=== PATIENT | female | born 1985 | race Caucasian/White ===

== ENCOUNTER 2017-12-13 10:11 | Inpatient (IN) ==
[2017-12-13] MEDS ORDERED: ACETAMINOPHEN 500 MG TABLET PO PRN (10:38)
[2017-12-13] MEDS ORDERED: CALCIUM CARBONATE Chewable 500mg TABLET PO PRN (10:38)
[2017-12-13] MEDS ORDERED: METHYLERGONOVINE 0.2 MG/ML INJECTION IM PRN (10:38)
[2017-12-13] MEDS ORDERED: CARBOPROST 250 MCG/ML INJECTION IM PRN (10:38)
[2017-12-13] MEDS ORDERED: MAG-AL + SIM ORAL LIQUID 30ml PO PRN (10:38)
[2017-12-13] MEDS ORDERED: LIDOCAINE 1% (10mg/ml) 2mL INJ PF SDV ID PRN (10:38)
--- OUTSIDE RECORDS SUMMARY | 2017-12-13 10:39 | External Medical Summary | Continuity of Care Document ---
:1985 Author Organization [facility] Address [address] [place], [place] [phone] Phone Care Team Providers Name Role Phone Elvira Brand MD Unavailable Unavailable Allergies, Adverse Reactions, Alerts Substance Reaction Severity Status latex rash Unknown Active cefixime rash Unknown Active Medications Medication Instructions Dosage Effective Dates Status Comments (start - stop) Pepcid 40 mg take 1 tablet by 40 MG - Active tablet oral route every day at bedtime Fioricet 50 mg-300 take 1 capsule by - Active mg-40 mg capsule oral route every 4 hours as needed 28 mg take 1 tablet by Not Available - Active iron-800 mcg oral route every tablet day Problems Condition Effective Dates (start - stop) Clinical Status Encounter for suprvsn of normal - , second trimester 20 weeks gestation of - Obesity complicating , second - trimester Encounter for suprvsn of normal - , second trimester 24 weeks gestation of - Encounter for suprvsn of normal - , third trimester 28 weeks gestation of - Morbid (severe) obesity due to excess calories Nonscarring hair loss, unspecified Menometrorrhagia Body mass index (BMI) 40.0-44.9, adult Abnormal glucose complicating - Encounter for suprvsn of normal - , second trimester 22 weeks gestation of - Encounter for suprvsn of normal - , third trimester 30 weeks gestation of - History Tobacco Abuse - Active Abdominal Pain, LLQ - Active Body Mass Index 40.0-44.9, Adult - Active Procedures Procedure Date Unknown Results Test Name Date and Time Measure Units Reference Range Abnormal Flag Comments Unknown Advance Directives Directive Yes / No Effective Date File Name Unknown Encounters Encounter Practice Location Reason(s) Diagnoses Date Provider Care Description For Visit Team Members Collette Cole Encounter for suprvsn October-0 Gene In Womens of normal , 4-201 [place]. [facility], third [email or web address] 8 Medical PO Box weeks gestation of Center [address], [place], [place], [place], [place], , [place], [place] [id number] tel:+ , [place]. tel: [phone] Collette Cole Apr-2 Gene In Womens 4-201 [place]. [facility], 8 Medical PO Box [place] [address], [place], 120, [place], [place], , [place], [place] [id number] tel:+ , [place]. tel:[phone] Colltete Swann Abnormal glucose Apr-2 Gene In Womens complicating 3-201 [place]. [facility] [place], 8 Medical PO Box [address], [place], 120, [place], [place], , [place] [id number] tel:+ , [place]. tel:[phone] Collette Cole Encounter for suprvsn Apr-1 Gene In Womens of normal , 8-201 [place]. [facility] [place], third 8 Medical PO Box weeks gestation of Center [address], [place], 120, [place], [place], , [place] [id number] tel:+ , [place]. tel:[phone] Collette Cole Obesity complicating Mar-2 Gene In Womens , second - [place]. [facility] [place], trimesterEncounter 8 Medical PO Box for suprvsn of normal Center [address], , second [place], weeks 120, [place], gestation of [place], , [place], tel: , [place]. tel: [phone] Collette Cole Encounter for suprvsn Mar-1 Sobbing In Womens of normal , 2-201 [place]. [facility], second [email or web address] 8 700 PO Box weeks gestation of Medical 1522, [facility], [place], [address] , 120, [place], tel: [place], 114, [place]. tel: [phone] Collette Cole Encounter for suprvsn Feb-2 Gene In Womens of normal , 1-201 [place]. 700 Health [place], second 8 Medical PO Box weeks gestation of [place] [address], Richy [place], [facility], [place], [place], , [place], [place] tel: , [place]. tel: [phone] Collette Cole Morbid (severe) Oct-0 [place] In Womens obesity due to excess 2-201 [place]. [facility], caloriesNonscarring 5 700 PO Box hair loss, Medical 1522, [facility] [place], agiaBody mass index Richy [place], (BMI) 40.0-44.9, 120, , adult Cole, [place], tel:[phone] , [place]. tel: [phone] Collette Cole Feb-2 Gene In Womens 4-201 [place]. 700 Health [place], 5 Medical PO Box [place] [address], Rich[place], [facility], [place], [place], , [place], [place] tel: , [place]. tel: [phone] Family History Family Member Diagnosis Age At Onset Paternal Grandfather Hypertension Father Renal disease Maternal Grandfather Diabetes mellitus Father Hypertension Paternal Grandfather Stroke Maternal Grandmother Hypertension Maternal Grandmother Osteoporosis Maternal Grandmother Renal disease No family history of Ovarian Cancer Paternal Grandfather Diabetes mellitus Close relative Cancer, breast Maternal Grandmother Thyroid Disorder Father Diabetes mellitus Sister Thyroid Disorder No family history of Colon Cancer Mother Thyroid Disorder Sister Renal disease Maternal Grandfather Stroke Immunizations Vaccine Date Status Comments Influenza, injectable, quadrivalent, completed Source: Other Provider preservative free, 3 yrs or older Payers Payer name Insurance type Covered green party ID Authorization(s) [facility] [id number] Social History Type Description Quantity Date Captured Unknown Vital Signs Date / Height Weight BMI Pulse Blood Temperature Respiratory Body Head BMI Time: Rate Pressure Rate Surface Circumference percentile Area Unknown Chief Complaint And Reason For Visit Unknown Chief Complaint And Reason For Visit Reason For Referral Reason For Referral Unknown Plan Of Care Date Type Action Status Appointment Delores Olson BOOKED Date Type Problem Goal Intervention Status Start Date Unknown. History Of Present Illness Encounter Date Complaint History Of Present Illness This patient has no known history of present illness Functional Status Encounter Date Functional Assessment Cognitive Assessment Unknown Medications Administered Medication Instructions Dosage Effective Dates (start - stop) Status Comments Drug Treatment Unknown Instructions Date Instruction Additional Information Unknown
--- OUTSIDE RECORDS SUMMARY | 2017-12-13 10:39 | External Medical Summary | Continuity of Care Document ---
:1985 Author Organization [facility] Address [address] [place], [place] [phone] Phone Care Team Providers Name Role Phone [...] third trimester 28 weeks gestation of - Encounter for suprvsn of normal - , second trimester 20 weeks gestation of - Obesity complicating , second - trimester Encounter for suprvsn of normal - , second trimester 24 weeks gestation of - Morbid (severe) obesity [...] 40.0-44.9, Adult - Active Procedures Procedure Date OB Visit No Charge Automated hemogram (CBC) Glucose test Venpnctr fngr/heel/ear stick routne Results Test Name Date and Time Measure Units Reference Range Abnormal Flag Comments Unknown NOTE: This patient has pending results not included in this document. Advance Directives Directive Yes / No Effective Date File Name Unknown Encounters Encounter Practice Location Reason(s) Diagnoses Date Provider Care Description For Visit Team Members Collette Cole Encounter for suprvsn May-0 Gene In Womens of normal , 4-201 [place]. 700 [facility] [place], third 8 Medical PO Box weeks gestation of [place] [address], Richy Sherwood, [facility], [place], [place], , [place], [place] tel:+ , [place]. tel:[phone] Collette [facility] Abnormal glucose Apr-2 Gene In Womens complicating 3-201 [place]. 700 [facility], 8 Medical PO Box [place] [address], Rich[place], 120, [place], [place], , [place], [place] [id number] tel:+ , [place]. tel: [phone] Collette Cole Encounter for suprvsn Apr-1 Gene In Womens of normal , 8-201 [place]. 700 [facility] [place], third [email or web address] 8 Medical PO Box weeks gestation of Center [address], Richy [place], 120, [place], [place], [id number], [place], [place] [id number] tel:+ , [place]. tel:[phone] Collette Cole Obesity complicating Mar-2 Gene In Womens , second 1-201 [place]. 700 [facility] [place], trimesterEncounter 8 Medical PO Box for suprvsn of normal Center [address], , second Richy Sherwood, [email or web address] weeks 120, [place], gestation of [place], , [place], [place] [id number] tel: , [place]. tel: [phone] Collette Cole Encounter for suprvsn Mar-1 Sobbing In Womens of normal , 2-201 [place]. [facility], second [email or web address] 8 700 PO Box weeks gestation of Medical 1522, [facility], [facility], [place], [address] [id number], 120, [place], tel: [place], [address], [place]. tel: [phone] Collette Cole Encounter for suprvsn Feb-2 Gene In Womens of normal , 1-201 [place]. 700 [facility] [place], second [email or web address] 8 Medical PO Box weeks gestation of [place] [address], Rich[place], [facility], [place], [place], , [place], [place] [id number] tel: , [place]. tel: [phone] Collette Cole Morbid (severe) Oct-0 [place] In Womens obesity due to excess 2-201 [place]. [facility], caloriesNonscarring 5 700 PO Box hair loss, Medical 1522, [facility] [place], agiaBody mass index , Richy [place], (BMI) 40.0-44.9, 120, [id number], adult [place], [place], tel:[phone] , [place]. tel: [phone] Collette Cole Feb-2 Gene In Womens 4-201 [place]. 700 [facility] [place], 5 Medical PO Box [place] [address], [place], [facility], [place], [place], , [place], [place] [id number] tel: , [place]. tel: [phone] Family History Family Member Diagnosis Age At [...] Insurance type Covered green party ID Authorization(s) [facility] [id number] Social History Type Description Quantity Date Captured Alcohol Use Details Caffeine Use Details Unknown Tobacco Use Status Smoking Status Former smoker Vital Signs Date / Height Weight BMI Pulse Blood Temperature Respiratory Body Head BMI Time: Rate Pressure Rate Surface Circumference percentile Area 379.90 56.9 118/2018 lbs 2 mm[Hg] 1:19 kg/m PM eter (2) Chief Complaint And Reason For Visit Unknown [...]
--- OUTSIDE RECORDS SUMMARY | 2017-12-13 10:39 | External Medical Summary | Continuity of Care Document ---
:1985 Author Organization [facility] Address [address] [place], [place] [phone] Phone Care Team Providers Name Role Phone Elvira Brand MD Unavailable Unavailable Allergies, Adverse Reactions, Alerts Substance Reaction Severity Status latex rash Unknown Active cefixime rash Unknown Active Medications Medication Instructions Dosage Effective Dates Status Comments (start - stop) Fioricet 50 mg-300 take 1 capsule by - Active mg-40 mg capsule oral route every 4 hours as needed 28 mg take 1 tablet by Not Available - Active iron-800 mcg oral route every tablet day Problems Condition Effective Dates (start - stop) Clinical Status Obesity complicating , second - trimester Encounter for suprvsn of normal - , second trimester 24 weeks gestation of - Encounter for suprvsn of normal - , second trimester 20 weeks gestation of - Morbid (severe) obesity due to excess calories Nonscarring hair loss, unspecified Menometrorrhagia Body mass index (BMI) 40.0-44.9, adult Encounter for suprvsn of normal - , second trimester 22 weeks gestation of - History Tobacco Abuse - Active Abdominal Pain, LLQ - Active Body Mass Index 40.0-44.9, Adult - Active Procedures Procedure Date OB Visit No Charge Results Test Name Date and Time Measure Units Reference Range Abnormal Flag Comments Unknown Advance Directives Directive Yes / No Effective Date File Name Unknown Encounters Encounter Practice Location Reason(s) Diagnoses Date Provider Care Description For Visit Team Members Collette Cole Obesity complicating Mar-2 Gene In Womens , second 1-201 [place]. 700 [facility], trimesterEncounter 8 Medical PO Box for suprvsn of normal Center [address], , second [place], weeks 120, [place], gestation of [place], , [place], [place] tel: , [place]. tel: [phone] Collette Cole Encounter for suprvsn Mar-1 Sobbing In Womens of normal , 2-201 [place]. [facility], second [email or web address] 8 700 PO Box weeks gestation of Medical 1522, [facility], [facility], [place], [address] , 120, [place], tel:+ [place], 114, [place]. tel: [phone] Collette Cole Encounter for suprvsn Feb-2 Gene In Womens of normal , 1-201 [place]. 700 [facility] [place], second [email or web address] 8 Medical PO Box weeks gestation of Center [address], [place], 120, [place], [place], , [place], [place] tel: , [place]. tel: [phone] Collette Cole Morbid (severe) Oct-0 [place] In Womens obesity due to excess 2-201 [place]. Health JEFF, caloriesNonscarring 5 700 PO Box hair loss, Medical 1522, [facility]ror [facility], agiaBody mass index Richy [place], (BMI) 40.0-44.9, 120, [id number], adult [place], [facility], tel:+ , [place]. tel: [phone] Collette Cole Feb-2 Gene In Womens 4-201 [place]. 700 Health JEFF, 5 Medical PO Box [address], [place], 120, [place], [place], , [place], [place] tel:+ , [place]. tel: [phone] Family History Family Member Diagnosis Age At [...] type Covered green party ID Authorization(s) [facility] [id number] Social History Type Description Quantity Date Captured Alcohol Use Details Caffeine Use Details Unknown Tobacco Use Status Smoking Status Former smoker Vital Signs Date / Height Weight BMI Pulse Blood Temperature Respiratory Body Head BMI Time: Rate Pressure Rate Surface Circumference percentile Area 379.10 56.8 132/84 -2018 lbs 0 mm[Hg] 1:19 kg/m PM eter (2) Chief [...]
--- OUTSIDE RECORDS SUMMARY | 2017-12-13 10:39 | External Medical Summary | Continuity of Care Document ---
:1985 Author Organization [facility] Address [address] [place], [place] [phone] Phone Care Team Providers Name Role Phone [...] Measure Units Reference Range Abnormal Flag Comments Panel Description: Gestational Glucose Tolerance Glucose - Fasting 08:03:00 93 mg/dL 65-94 Glucose - 1 hour 08:03:00 161 mg/dL 65-179 Glucose - 2 hour 08:03:00 160 mg/dL 65-154 H Glucose - 3 hour 08:03:00 114 mg/dL 65-139 Note: 08:03:00 Comment For diagnosis of gestational diabetes, at least two values must meetor exceed normal limits, which is based on 100 gm of oral glucosechallenge. Advance Directives Directive Yes / No Effective Date File Name Unknown Encounters Encounter Practice Location Reason(s) Diagnoses Date Provider Care Description For Visit Team Members Collette Cole Encounter for suprvsn May-0 Gene In Womens of normal , 4-201 [place] [address] [employer] [place], third 8 Medical PO Box weeks gestation of Center 1522, Richy [place], [facility], [place], [place], [id number], [place], [id number] tel:+ , [place]. tel: [phone] [facility] Abnormal glucose Apr-2 Gene In Womens complicating 3-[address], 8 Medical PO Box [place] [address], Richy Sher[place], [facility], [place], [place], , [place], [place] [id number] tel: , [place]. [address] tel: [phone] Collette Cole Apr-1 Gene In Womens 9-[address], 8 Medical PO Box Center [address], Rich[place], 120, [place], [place], , [place], [place] [id number] tel:2 , [place]. [address] tel: [phone] Collette Cole Encounter for suprvsn Apr-1 Gene In Womens of normal , 8-201 [place]. 700 [facility], third [email or web address] 8 Medical PO Box weeks gestation of [place] [address], [place], 120, [place], [place], , [place], [place] tel:+ , [place]. tel: [phone] [facility] [place] Obesity complicating Mar-2 Gene In Womens , second 1-201 [place]. 700 [facility], trimesterEncounter 8 Medical PO Box for suprvsn of normal [place] [address], , second Richy Sherwood, [email or web address] weeks 120, [place], gestation of [place], , [place], [place] tel:+ , [place]. tel: [phone] [facility] [place] Encounter for suprvsn Mar-1 Sobbing In Womens of normal , 2-201 [place]. [facility], second [email or web address] 8 700 PO Box weeks gestation of Medical 1522, [facility], [place], [address] , 120, [place], tel: [place], 114, [place]. tel: [phone] Collette Cole Encounter for suprvsn Feb-2 Gene In Womens of normal , 1-201 [place]. 700 [facility] PA, second [email or web address] 8 Medical PO Box weeks gestation of [place] [address], [place], 120, [place], [place], , [place], [place] tel: , [place]. tel: [phone] Collette Cole Morbid (severe) Oct-0 [place] In Womens obesity due to excess 2-201 [place]. [facility], caloriesNonscarring 5 700 PO Box hair loss, Medical 1522, unspecifiedMenometror [facility], agiaBody mass index Richy [place]wood, (BMI) 40.0-44.9, 120, [id number], adult [place], [place], tel:[phone] , [place]. tel: [phone] Collette Cole Feb-2 Gene In Womens 4-201 [place]. 700 [facility], 5 Medical PO Box [place] [address], [place], 120, [place], [place], , [place], [place] [id number] tel:7592 , [place]. [id number] tel: [phone] Family History Family Member Diagnosis Age At [...] older Payers Payer name Insurance type Covered alliance party ID Authorization(s) [facility] [id number] Social History Type Description Quantity Date Captured [...]
--- OUTSIDE RECORDS SUMMARY | 2017-12-13 10:39 | External Medical Summary | Continuity of Care Document ---
:1985 Author Organization [facility] Address [address] [place], [place] [phone] Phone Care Team Providers Name Role Phone [...] Effective Dates (start - stop) Clinical Status Abnormal glucose complicating - Encounter for suprvsn [...] 40.0-44.9, Adult - Active Procedures Procedure Date Glucose tolerance test (GTT) GTT-added samples Venpnctr fngr/heel/ear stick routne Results Test Name Date and Time Measure Units Reference Range Abnormal Flag Comments Unknown Advance Directives Directive Yes / No Effective Date File Name Unknown Encounters Encounter Practice Location Reason(s) Diagnoses Date Provider Care Description For Visit Team Members Collette Cole Encounter for suprvsn October-0 Gene In Womens of normal , 4-201 [place]. [facility] [place], third [email or web address] 8 Medical PO Box weeks gestation of [place] 1522, Rich[place], 120, [place], [place], [id number], [place], [place] [id number] tel:+ , [place]. tel:[phone] [facility] Apr-2 Gene In Womens complicating 3-[address] [place] [place] [address], 8 Medical PO Box Center [address], Richy [place], 120, [place], [place], [id number], [place], [place] [id number] tel:+ , [place]. tel:[phone] Collette Cole Encounter for suprvsn Apr-1 Gene In Womens of normal , 8-201 [place]. [facility] [place], third [email or web address] 8 Medical PO Box weeks gestation of [place] 1522, [place], 120, [place], [place], [id number], [place], [place] [id number] tel:+ , [place]. tel:[phone] Collette Cole Obesity complicating Mar-2 Gene In Womens , second 1-201 [place] [address] [place], trimesterEncounter 8 Medical PO Box for suprvsn of normal Center [address]22, , second Richy Sherwood, [email or web address] weeks 120, [place], gestation of [place], , [place], [place] [id number] tel:+ , [place]. tel:[phone] Collette Cole Encounter for suprvsn Mar-1 Sobbing In Womens of normal , 2-201 [place]. [facility], second [email or web address] 8 700 PO Box weeks gestation of Medical 1522, [facility], [place], [id number], 120, [place], [place]:+ [place], [address], [place]. tel: [phone] Collette Cole Encounter for suprvsn Feb-2 Gene In Womens of normal , 1-201 [place]. 700 Health PA, second [email or web address] 8 Medical PO Box weeks gestation of [place] 1522, Rich[place], 120, [place], [place], , [place], [place] [id number] tel: , [place]. tel: [phone] Collette Cole Morbid (severe) Mar-0 [place] In Womens obesity due to excess 2-201 [place]. [facility], caloriesNonscarring 5 700 PO Box hair loss, Medical 1522, unspecifiedMenometror [facility], agiaBody mass index Richy Sherwood, (BMI) 40.0-44.9, 120, [id number], adult [place], [place], tel:[phone] , [place]. tel: [phone] Collette Cole Feb-2 Gene In Womens 4-201 [place]. 700 Health PA, 5 Medical PO Box [address], Richy [place], [facility], [place], [place], , [place], [place] tel: , [place]. tel: [phone] Family History Family Member Diagnosis Age At [...] older Payers Payer name Insurance type Covered democrat ID Authorization(s) [facility] [id number] Social History Type Description Quantity Date Captured [...]
[2017-12-13] MEDS: LR 1,000 ML IV PRN ×2 (10:50→19:18)
[2017-12-13 11:11] VITALS: BMI 57.1
[2017-12-13] MEDS ORDERED: OXYTOCIN DRIP 30 UNIT/500 ML ML IV PRN (11:30)
[2017-12-13] MEDS: D5LR 1,000 ML IV PRN ×2 (11:30→21:20)
--- NOTE | 2017-12-13 13:56 | Anesthesia Preoperative Report ---
Anesthesia Preoperative Record - Date and Time Date: 12/13/17 Preoperative Diagnosis: Labor Induction NPO Since Date: 12/12/17 NPO Since Time: 00:00 Allergies/Adverse Reactions: Allergies Allergy/AdvReac Type Severity Reaction Status Date / Time latex Allergy Unknown Verified 12/13/17 13:12 - Vital Signs Height and Weight: Height 1.78 m Weight 180.53 kg Body Mass Index 57.1 - Medications Inpatient Medications: Current Medications Acetaminophen (Tylenol) 500 - 1,000 mg PO Q4H PRN PRN Reason: Pain Al Hydroxide/Mg Hydroxide (Maalox Plus) 30 ml PO Q3H PRN PRN Reason: Indigestion Calcium Carbonate (Tums) 500 - 1,000 mg PO Q2H PRN PRN Reason: Indigestion Carboprost Tromethamine (Hemabate) 250 mcg IM O PRN PRN Reason: .Downtime Lactated Ringer's (Lactated Ringers) 1,000 mls @ 999 mls/hr IV .Q1H1M PRN Lidocaine HCl (Xylocaine-Mpf 1% Vial) 0.2 mg ID O PRN PRN Reason: IV Start Methylergonovine Maleate (Methergine) 0.2 mg IM O PRN Misoprostol (Cytotec) 800 mcg OK ONCE PRN Home Medications: Home Medications Medication Instructions Recorded Confirmed Type Albuterol HFA Inhaler [Ventolin 1 puff INH DAILY PRN 05/12/17 05/12/17 History Hfa 90 mcg/actuation] Cetirizine HCl [Zyrtec] 10 mg PO DAILY PRN 05/12/17 05/12/17 History DiphenhydrAMINE [Benadryl] 25 mg PO Q4H PRN 05/12/17 05/12/17 History FLUoxetine [Prozac] 20 mg PO DAILY 05/12/17 05/12/17 History predniSONE [Prednisone] 10 mg PO DAILY #9 tab 05/12/17 Rx raNITIdine HCl [Zantac] 150 mg PO DAILY PRN 05/12/17 05/12/17 History - Medical History Respiratory: Reports: Asthma (Proair inhaler PRN. Loratadine), Bronchitis (in winter), Sleep Apnea (has CPAP), Other (allergies) DENIES: Pneumonia Cardiovascular: Reports: Hypertension DENIES: Heart Murmur, Hypotension, Valvular Heart Disease Gastrointestional: Reports: Gastroesophageal Reflux Disease (tums, prevacid), Morbid Obesity Neuro/Musculoskeletal: Reports: Back Problems (chronic, also sciatica with ), Depression (prozac when not ), Headaches Denies: Syncope, Seizures Renal/Endocrine: DENIES: Diabetes Mellitus Type 2, Thyroid Disease Other History: Reports: Now (38 weeks) - Surgical History HEENT Surgeries: Reports: Tonsillectomy (as kid) GI Surgery/Treatments: Reports: Cholecystectomy (2009) Reproductive Surgery/Treatment: DENIES: Section Anesthesia Reactions: None Hx Family Anesthesia Reaction: No History of Motion Sickness: No - Social History Smoking Status: Former smoker (quit years ago) Substance Use Type: does not use Alcohol Intake Frequency: does not drink - Pertinent Findings Laboratory: CBC and BMP 12/13/17 10:51 12/13/17 10:51 BMP 12/13/17 10:51 Sodium 142 Potassium 4.0 Chloride 112 H Carbon Dioxide 19 L BUN 8.0 Creatinine 0.7 Glucose 86 Calcium 9.0 Liver Function 12/13/17 Range/Units 10:51 Total Bilirubin 0.20 (0.20-1.30) MG/DL AST 37 H (14-36) U/L ALT 39 H (1-35) U/L Alkaline Phosphatase 267 H (38-126) U/L Albumin 3.6 (3.5-5.0) g/dL - Physical Exam Respiratory Exam: Present: lungs clear, bilateral breath sounds equal - Airway Assessment Mallampati Score: II TMD: 3 Fingerbreadths Neck Extension: fair Teeth: chipped teeth/crowns Overall Assessment: may be difficult intubation - ASA ASA Score: 3 - Plan Regional/Trunk Block: Epidural - Discussion Discussion: Discussed risks/options/alternatives of anesthesia and questions answered. Patient consents. Nursing pain assessment noted. Present for Discussion: family member, parent Attestation Statement: Prior to the delivery of any anesthetic medication, I examined the patient, developed the plan, obtained the patient's consent and discussed the risk and benefits of the procedure with the patient/guardian. - Additional Information Seen by Anesthesia: Yes
[2017-12-13] MEDS ORDERED: NALOXONE 0.4 MG/ML INJECTION IVP PRN (15:10)
[2017-12-13] MEDS ORDERED: DiphenhydrAMINE 50 MG/ML INJECTION IVP PRN (15:10)
[2017-12-13] MEDS ORDERED: ONDANSETRON 4 MG/2 ML INJECTION IVP PRN (15:10)
[2017-12-13] MEDS: ROPIVACAINE 1% 10MG/ML INJ 200 MG, SUFentanil 50 MCG in NS 100 ML EPI PRN (22:56)
[2017-12-13] MEDS ORDERED: PROCHLORPERAZINE 10 MG/2 ML INJECTION IVP PRN (23:13)
[2017-12-14] MEDS: LR 1,000 ML IV PRN (04:28)
[2017-12-14] MEDS: ROPIVACAINE 1% 10MG/ML INJ 200 MG, SUFentanil 50 MCG in NS 100 ML EPI PRN (05:32)
[2017-12-14] MEDS ORDERED: OXYTOCIN DRIP 30 UNIT/500 ML ML IV SCH (08:59)
[2017-12-14] MEDS ORDERED: HYDROCORTISONE 2.5% CREAM 30gm RECTALLY PRN (08:59)
[2017-12-14] MEDS ORDERED: DiphenhydrAMINE 25 MG CAPSULE PO PRN (08:59)
[2017-12-14] MEDS ORDERED: MAG-AL + SIM ORAL LIQUID 30ml PO PRN (08:59)
[2017-12-14] MEDS ORDERED: CALCIUM CARBONATE Chewable 500mg TABLET PO PRN (08:59)
[2017-12-14] MEDS ORDERED: HYDROCODONE/APAP 5mg/325mg TABLET PO PRN (08:59)
[2017-12-14] MEDS: IBUPROFEN 800 MG TABLET PO PRN ×2 (09:00→21:15)
[2017-12-14] MEDS: DOCUSATE CALCIUM 240 MG CAPSULE PO SCH (09:00)
--- NOTE | 2017-12-14 10:53 | Labor and Delivery Note ---
DATE OF DELIVERY: 12/14/2017 DIAGNOSES 1. 32-year-old white female, G2, P1 at 38.3 weeks gestational age. 2. Chronic hypertension - not on medications. 3. Morbid obesity. 4. Pitocin induction of labor for superimposed preeclampsia. 5. Artificial rupture of membranes. 6. Epidural anesthesia. 7. Intrauterine pressure monitor. 8. Spontaneous vaginal delivery. 9. First-degree perineal laceration repaired. 10. Male infant, Apgars, 3845 g (Kormac Zcah). 11. Nuchal cord x 1. DESCRIPTION: This is a patient who saw Dr. Stovall up until 20 weeks and then Sia transferred her to me as she felt she was too high risk for her. Patient is approximately 400 pounds and known to have chronic hypertension although her blood pressures have been pretty normal throughout the and she is not on any medications. She just developed superimposed preeclampsia and a 24-hour urine was completed on night. Results Saturday morning were abnormal so we called the patient and had her leave work in [employer] and come over and started an induction. Her cervix was initially 1 cm. Pitocin was started at 11:30 a.m. on Saturday and delivery was Saturday 7:01 a.m. IUPM was placed and Pitocin reached a maximum of 20 milliunits/minute. The patient underwent epidural anesthesia. I put on sequential compression stockings because of her size and the epidural. Eventually we made it to complete dilation began pushing around 6 a.m. Approximately an hour later we had a spontaneous vaginal delivery. Cord was allowed to drain for 10 minutes and then it was doubly clamped and cut. Infant went initially to the isolette. There was a first-degree perineal laceration that was repaired with a single [id number] of 3-0 chromic. At the time of dictation mother and are doing well. [facility]
--- NOTE | 2017-12-14 11:01 | Anesthesia Postoperative Note ---
- Date and Time Date: 12/14/17 Time: 11:00 - Status Patient Participated in Evaluation: Patient Participated in Person Vital Signs: Pulse Oximetry 99 12/14/17 03:40 Respiratory Function: Airway Patent Cardiovascular Function: Regular Pulse EKG: Sinus Rhythm Mental Status: Alert and Oriented Pain Intensity: 0 Hydration: Taking PO Fluids Complications During Recover: None Apparent - Follow-Up Instructions Instructions: Per Surgeon
[2017-12-15] MEDS: IBUPROFEN 800 MG TABLET PO PRN ×2 (07:14→15:30)
[2017-12-15] MEDS: ACETAMINOPHEN 500 MG TABLET PO PRN ×3 (10:23→21:59)
[2017-12-15] MEDS: DOCUSATE CALCIUM 240 MG CAPSULE PO SCH (10:24)
--- NOTE | 2017-12-15 11:52 | Progress Note ---
OB PP Progress Note Free Text - Date Date: 12/15/17 - Progress Note Progress Note: vss af GALVIN gone RUQ pain gone Voiding more BP's improved pt sitting up in chair rocking baby liver enzymes still elevated but stable from yesterday. Creat better. Will recheck later today. If improved will allow to go home. q&a-krb
--- NOTE | 2017-12-15 17:05 | Progress Note ---
OB PP Progress Note Free Text - Date Date: 12/15/17 - Progress Note Progress Note: Liver enzymes increased so will keep her another night. Pt reports voiding a lot and large volumes. Do not think we need to start MgSO4 as no GALVIN and greater than 24hrs after delivery and BP's improved. I think her labs are lagging behind. q&a w/ pt.
[2017-12-16] MEDS: IBUPROFEN 800 MG TABLET PO PRN ×2 (01:00→11:02)
--- NOTE | 2017-12-16 08:14 | OB/GYN Progress Note ---
<Daphne Tomlinson - Last Filed: 12/16/17 08:11> OB-PP Progress Note - General PPD2 - Subjective Date: 12/16/17 Lochia: Moderate Pain: controlled (using Ibuprofen. working well. ) Voiding: voiding Nausea or Vomiting Present: No - Objective Vital Signs: Last Vital Signs Temp 97.8 F 12/16/17 05:35 Pulse 80 12/16/17 05:35 Resp 16 12/16/17 05:35 BP 141/82 H 12/16/17 05:35 Pulse Ox 97 12/16/17 05:35 Urine Output: good General: alert and oriented Abdomen: fundus firm Extremities: non-tender Laboratory: Laboratory Results - last 24 hr 12/15/17 12/16/17 12/16/17 14:08 06:11 06:11 WBC 7.6 D RBC 3.82 L Hgb 9.7 L Hct 30.3 L MCV 79.3 L MCH 25.4 L MCHC 32.0 RDW Std Deviation 46.4 Plt Count 340 MPV 10.0 Turbidity < 20 < 20 Sodium 144 143 Potassium 3.8 3.7 Chloride 111 H 111 H Carbon Dioxide 21 L 22 Anion Gap 12 10 BUN 8.0 8.0 Creatinine 0.8 0.7 GFR Calculation 83 97 BUN/Creatinine Ratio 10 11 Glucose 83 85 Calculated Osmolality 274 272 Calcium 9.1 8.6 Total Bilirubin 0.30 0.20 Icterus Index < 2 < 2 AST 63 H 55 H ALT 60 H 53 H Alkaline Phosphatase 235 H 189 H Total Protein 7.0 6.3 Albumin 3.7 3.3 L Globulin 3.3 3.0 Albumin/Globulin Ratio 1.1 1.1 Specimen Hemolysis < 15 < 15 - Assessment Assessment: - Plan Plan: routine care Expected date of discharge: 12/16/17 Lab levels this a.m. AST 63 on 12/15 to 55 on 12/16 ALT 60 on 12/15 to 53 on 12/16 Alk Phosphatase 235 on 12/15 to 189 on 12/16. <Aleks King - Last Filed: 12/16/17 08:22> OB-PP Progress Note - Subjective Date: 12/16/17 - Objective Vital Signs: Last Vital Signs Temp 97.8 F 12/16/17 05:35 Pulse 80 12/16/17 05:35 Resp 16 12/16/17 05:35 BP 141/82 H 12/16/17 05:35 Pulse Ox 97 12/16/17 05:35 Laboratory: Laboratory Results - last 24 hr 12/15/17 12/16/17 12/16/17 14:08 06:11 06:11 WBC 7.6 D RBC 3.82 L Hgb 9.7 L Hct 30.3 L MCV 79.3 L MCH 25.4 L MCHC 32.0 RDW Std Deviation 46.4 Plt Count 340 MPV 10.0 Turbidity < 20 < 20 Sodium 144 143 Potassium 3.8 3.7 Chloride 111 H 111 H Carbon Dioxide 21 L 22 Anion Gap 12 10 BUN 8.0 8.0 Creatinine 0.8 0.7 GFR Calculation 83 97 BUN/Creatinine Ratio 10 11 Glucose 83 85 Calculated Osmolality 274 272 Calcium 9.1 8.6 Total Bilirubin 0.30 0.20 Icterus Index < 2 < 2 AST 63 H 55 H ALT 60 H 53 H Alkaline Phosphatase 235 H 189 H Total Protein 7.0 6.3 Albumin 3.7 3.3 L Globulin 3.3 3.0 Albumin/Globulin Ratio 1.1 1.1 Specimen Hemolysis < 15 < 15 - Plan Chart and Lab reviewed. CHTN with SI preeclampsia Infant on Bili light if infant discharged to home may discharge pt. Please call for dismissal.
[2017-12-16] MEDS: DOCUSATE CALCIUM 240 MG CAPSULE PO SCH (11:03)
[2017-12-16 13:52] VITALS: BP 139/77; PULSE 75; RESP 20; TEMP 97.9; O2SAT 100
== END 2017-12-16 16:00 | disposition home or self-care (01) | DRG 774 ==
LOC: MC 10:30
PROVIDERS: ADMIT Obstetrics & Gynecology; ATTEND Obstetrics & Gynecology